=== PATIENT | male | born 1965 | race Caucasian/White ===

== ENCOUNTER → 2024-02-07 10:09 | Outpatient (REF) | payer BC, OTHER, SELFPAY | LOC: RAD 10:09 | PROVIDERS: ATTENDING PHYSICIAN Psychiatry & Neurology Neurology; FAMILY PHYSICIAN Physician Assistant Medical | DX: M79.18 Myalgia, other site (principal); M25.551 Pain in right hip; M46.1 Sacroiliitis, not elsewhere classified | CPT/HCPCS: 72220; 73502 ==